=== PATIENT | female | born 1995 | race Two or more races ===

== ENCOUNTER → 2024-11-09 | Emergency (ER) | payer BC ==
[~2024-11-09] VITALS: Ht 167.6 cm; Wt 75.3 kg
[~2024-11-09] MED LIST: KETOROLAC TROMETHAMINE 30 MG VIAL IM ONE; KETOROLAC TROMETHAMINE 30 MG VIAL ONE; METOCLOPRAMIDE HCL 5 MG/ML VIAL ONE
== END | disposition left against medical advice (07) ==
LOC: ER 15:01
DX: M79.672 Pain in left foot (principal)